=== PATIENT | female | born 1940 | race Caucasian/White ===

== ENCOUNTER 2017-05-30 14:09 | Outpatient (CLI) | payer OTHER ==
[~2017-05-30 14:09] MED LIST: ASPIRIN81 M1; CELEBREX100 MG PO; COREG CR10 MG; DIALYVITE 800-1 EACH; ETODOLAC500 MG; GLIMEPIRIDE4 MG; GLUCOPHAGE XR500 MG; LOSARTAN-HCTZ1 EAC1; OMEPRAZOLE40 MG; REGLAN 10ML5 MG/ML; REGLAN5 MG/5 ML; SYNTHROID112 MCG; ULTRACET; ZOLOFT25 MG; ZOLPIDEM TARTRA10 MG
== END 2017-05-30 14:16 | disposition home or self-care (01) ==
LOC: RAD 501 14:09
DX: R07.81 Pleurodynia (principal); M54.5 Low back pain

== ENCOUNTER 2017-07-04 07:59 | Outpatient (CLI) | payer OTHER | END 2017-07-04 08:09 | disposition home or self-care (01) | LOC: LAB 07:59 | DX: E83.42 Hypomagnesemia (principal) ==

== ENCOUNTER 2017-07-04 10:03 | Outpatient (CLI) | payer OTHER | END 2017-07-04 10:05 | disposition home or self-care (01) | LOC: NUCLEAR 10:03 | DX: M85.9 Disorder of bone density and structure, unspecified (principal); M81.0 Age-related osteoporosis without current pathological fracture ==

== ENCOUNTER 2018-07-24 09:58 | Outpatient (CLI) | payer OTHER | END 2018-07-24 10:06 | disposition home or self-care (01) | LOC: TOM 09:58 | DX: I67.89 Other cerebrovascular disease (principal) ==

== ENCOUNTER 2018-08-25 13:36 | Outpatient (CLI) | payer OTHER | END 2018-08-25 13:38 | disposition home or self-care (01) | LOC: MAMO-SONO 13:36 | DX: Z12.31 Encounter for screening mammogram for malignant neoplasm of breast (principal); Z87.898 Personal history of other specified conditions ==

== ENCOUNTER 2018-09-24 17:06 | Emergency (ER) | payer OTHER ==
[~2018-09-24] VITALS: Ht 160 cm; Wt 111.6 kg
== END 2018-09-25 00:08 | disposition home or self-care (01) ==
LOC: ER 17:06
DX: S00.83XA Contusion of other part of head, initial encounter (principal); W18.39XA Other fall on same level, initial encounter; Y93.89 Activity, other specified; Y92.098 Other place in other non-institutional residence as the place of occurrence of the external cause; Y99.8 Other external cause status

== ENCOUNTER 2019-11-16 14:25 | Outpatient (CLI) | payer OTHER | END 2019-11-16 14:33 | disposition home or self-care (01) | LOC: NUCLEAR 14:25 | PROVIDERS: ATTEND Internal Medicine | DX: M81.8 Other osteoporosis without current pathological fracture (principal); M25.512 Pain in left shoulder; Z96.651 Presence of right artificial knee joint; E11.40 Type 2 diabetes mellitus with diabetic neuropathy, unspecified; E78.49 Other hyperlipidemia; E55.9 Vitamin D deficiency, unspecified; E03.8 Other specified hypothyroidism; E66.8 Other obesity; I87.2 Venous insufficiency (chronic) (peripheral); F33.1 Major depressive disorder, recurrent, moderate; K29.50 Unspecified chronic gastritis without bleeding; M15.0 Primary generalized (osteo)arthritis; I11.9 Hypertensive heart disease without heart failure; G47.00 Insomnia, unspecified ==

== ENCOUNTER 2019-12-27 09:23 | Outpatient (CLI) | payer OTHER | END 2019-12-27 09:28 | disposition home or self-care (01) | LOC: RAD 09:23 | PROVIDERS: ATTEND Orthopaedic Surgery | DX: M25.561 Pain in right knee (principal); Z96.651 Presence of right artificial knee joint; M25.551 Pain in right hip; M25.552 Pain in left hip ==

== ENCOUNTER 2020-11-21 07:19 | Outpatient (CLI) | payer OTHER | END 2020-11-21 07:30 | disposition home or self-care (01) | LOC: TOM 07:19 | PROVIDERS: ATTEND Orthopaedic Surgery | DX: M19.012 Primary osteoarthritis, left shoulder (principal) ==

== ENCOUNTER → 2021-02-06 08:55 | Outpatient (CLI) | payer OTHER | END | disposition home or self-care (01) | LOC: LAB 08:55 | PROVIDERS: ATTEND Orthopaedic Surgery | DX: I10 Essential (primary) hypertension (principal); D64.89 Other specified anemias; E88.89 Other specified metabolic disorders; D68.8 Other specified coagulation defects; N39.0 Urinary tract infection, site not specified; Z22.322 Carrier or suspected carrier of Methicillin resistant Staphylococcus aureus; I49.8 Other specified cardiac arrhythmias; Z76.89 Persons encountering health services in other specified circumstances; M75.122 Complete rotator cuff tear or rupture of left shoulder, not specified as traumatic ==

== ENCOUNTER 2021-02-20 05:38 | Inpatient (IN) | payer OTHER ==
[~2021-02-20 05:38] MED LIST changes: +ARICEPT10 MG PO; +DITROPAN XL10 MG PO; +GLIMEPIRIDE2 MG
== END 2021-02-21 14:44 | disposition home or self-care (01) | DRG 483 ==
LOC: CIR.AMB 05:38 → SURH 15:06 → O/R 15:06 → SURH 15:14
PROVIDERS: ADMIT Orthopaedic Surgery; ATTEND Orthopaedic Surgery
PROC: 0PBB0ZZ Excision of Left Clavicle, Open Approach (ICD-10-PCS; 2021-02-20)
PROC: 0LS40ZZ Reposition Left Upper Arm Tendon, Open Approach (ICD-10-PCS; 2021-02-20)
PROC: 3E0F7SF Introduction of Other Gas into Respiratory Tract, Via Natural or Artificial Opening (ICD-10-PCS; 2021-02-20)
PROC: 0RRK00Z Replacement of Left Shoulder Joint with Reverse Ball and Socket Synthetic Substitute, Open Approach (ICD-10-PCS; principal; 2021-02-20 07:00)
DX: M75.122 Complete rotator cuff tear or rupture of left shoulder, not specified as traumatic (principal); M19.212 Secondary osteoarthritis, left shoulder

== ENCOUNTER 2021-06-12 14:53 | Outpatient (CLI) | payer OTHER ==
[~2021-06-12 14:53] MED LIST changes: +SYNTHROID112 MCG PO
[2021-06-15] MEDS ORDERED: PEPCID AC20 MG PO (08:58)
[2021-06-15] MEDS ORDERED: PROTONIX40 MG PO (08:58)
== END 2021-06-12 14:59 | disposition home or self-care (01) ==
LOC: RAD 14:53
PROVIDERS: ATTEND Orthopaedic Surgery
DX: M25.512 Pain in left shoulder (principal)

== ENCOUNTER 2021-06-13 12:26 | Outpatient (CLI) | payer OTHER ==
[2021-06-15] MEDS ORDERED: PROTONIX40 MG PO (08:58)
[2021-06-15] MEDS ORDERED: PEPCID AC20 MG PO (08:58)
== END 2021-06-13 12:30 | disposition home or self-care (01) ==
LOC: NUCLEAR 12:26
PROVIDERS: ATTEND Neuromusculoskeletal Medicine & OMM
DX: G30.9 Alzheimer's disease, unspecified (principal); G31.09 Other frontotemporal neurocognitive disorder
CPT/HCPCS: 78803; A9557

== ENCOUNTER 2021-06-19 09:29 | Day surgery (SDC) | payer OTHER ==
[~2021-06-19 09:29] MED LIST changes: +PEPCID AC20 MG PO; +PROTONIX40 MG PO
== END 2021-06-19 17:15 | disposition home or self-care (01) ==
LOC: CIR.AMB 09:29
PROVIDERS: ATTEND Orthopaedic Surgery
DX: S43.085A Other dislocation of left shoulder joint, initial encounter (principal); Z88.2 Allergy status to sulfonamides; Z91.048 Other nonmedicinal substance allergy status; Z88.0 Allergy status to penicillin; I10 Essential (primary) hypertension; Z86.16 Personal history of COVID-19; Z86.73 Personal history of transient ischemic attack (TIA), and cerebral infarction without residual deficits; M19.90 Unspecified osteoarthritis, unspecified site; E66.9 Obesity, unspecified; Z20.822 Contact with and (suspected) exposure to COVID-19

== ENCOUNTER 2021-06-27 12:18 | Outpatient (CLI) | payer OTHER | END 2021-06-27 12:22 | disposition home or self-care (01) | LOC: RAD 12:18 | PROVIDERS: ATTEND Orthopaedic Surgery | DX: M25.512 Pain in left shoulder (principal) ==

== ENCOUNTER 2021-07-02 05:56 | Day surgery (SDC) | payer OTHER ==
[2021-07-02] MEDS ORDERED: LEVOFLOXACIN750 MG PO (10:29)
== END 2021-07-02 12:45 | disposition home or self-care (01) ==
LOC: CIR.AMB 05:56
PROVIDERS: ATTEND Orthopaedic Surgery
DX: T84.028A Dislocation of other internal joint prosthesis, initial encounter (principal); Z88.0 Allergy status to penicillin; Z88.2 Allergy status to sulfonamides; Z88.8 Allergy status to other drugs, medicaments and biological substances; I10 Essential (primary) hypertension; E03.9 Hypothyroidism, unspecified; E11.42 Type 2 diabetes mellitus with diabetic polyneuropathy; E66.01 Morbid (severe) obesity due to excess calories; I87.2 Venous insufficiency (chronic) (peripheral); Z79.02 Long term (current) use of antithrombotics/antiplatelets; Z79.84 Long term (current) use of oral hypoglycemic drugs; E11.9 Type 2 diabetes mellitus without complications

== ENCOUNTER 2021-08-16 10:16 | Outpatient (CLI) | payer OTHER ==
[~2021-08-16 10:16] MED LIST changes: +LEVOFLOXACIN750 MG PO
== END 2021-08-16 10:24 | disposition home or self-care (01) ==
LOC: RAD 10:16 → EDBD 10:16 → RAD 10:24
PROVIDERS: ATTEND Orthopaedic Surgery
DX: M25.512 Pain in left shoulder (principal)

== ENCOUNTER 2021-08-17 08:25 | Emergency (ER) | payer OTHER ==
[~2021-08-17] VITALS: Ht 152.4 cm; Wt 98.4 kg
== END 2021-08-17 16:27 | disposition home or self-care (01) ==
LOC: ER 08:25
DX: T84.028A Dislocation of other internal joint prosthesis, initial encounter (principal); X58.XXXA Exposure to other specified factors, initial encounter; Z88.0 Allergy status to penicillin; Z88.2 Allergy status to sulfonamides

== ENCOUNTER 2021-08-24 08:21 | Inpatient (IN) | payer OTHER ==
[~2021-08-24] VITALS: Ht 30.5 cm; Wt 99.8 kg
== END 2021-08-25 23:56 | disposition home or self-care (01) | DRG 517 ==
LOC: CIR.AMB 08:21 → SURG 17:54 → SURH 17:54
PROVIDERS: ADMIT Orthopaedic Surgery; ATTEND Orthopaedic Surgery
PROC: 0RWK0JZ Revision of Synthetic Substitute in Left Shoulder Joint, Open Approach (ICD-10-PCS; principal; 2021-08-24 13:30)
DX: T84.028A Dislocation of other internal joint prosthesis, initial encounter (principal); Z20.822 Contact with and (suspected) exposure to COVID-19

== ENCOUNTER 2021-08-27 16:43 | Inpatient (IN) | payer OTHER ==
[~2021-08-27] VITALS: Ht 172.7 cm; Wt 108.9 kg
--- NOTE | 2021-08-27 17:16 | NUR ---
PACIENTE ALERTA Y ORIENTDA ACOMPANADA DE FAMILIAR LA CUAL REFIERE QUE LA PACIENTE SE LACERO LA HERIDA DE LA SCIRUGIA DE REMPLAZO DE HOMBRO, SE OBSERVA AREA SIPURANDO, POR MEDIO DE FOTP SE PUDO OBSERVAR AREA ABIERTA Y PROFUNDA, PACIENTE REFIERE QUE LE DUELE EL AREA. SE MONITOREAN S/V Y SE UBICA EN OBSERVACION, FAMILIAR REFIERE QUE PACIENTE FUE REFERIDA POR RASHAWN PARA ADMITIR PACIETE PARA CHANDLER DE OPERACIONES.
== END 2021-09-04 14:20 | disposition home or self-care (01) | DRG 908 ==
LOC: ER 16:43 → SURH 18:12 → SEC-K 18:12 → SURH 08-28 11:06
PROVIDERS: ADMIT Orthopaedic Surgery; ATTEND Orthopaedic Surgery
PROC: 0JDF0ZZ Extraction of Left Upper Arm Subcutaneous Tissue and Fascia, Open Approach (ICD-10-PCS; 2021-08-27)
PROC: 0JQF0ZZ Repair Left Upper Arm Subcutaneous Tissue and Fascia, Open Approach (ICD-10-PCS; principal; 2021-08-27 19:00)
PROC: 4A12X4Z Monitoring of Cardiac Electrical Activity, External Approach (ICD-10-PCS; 2021-08-28)
DX: T81.31XA Disruption of external operation (surgical) wound, not elsewhere classified, initial encounter (principal); T81.41XA Infection following a procedure, superficial incisional surgical site, initial encounter; T84.59XA Infection and inflammatory reaction due to other internal joint prosthesis, initial encounter; Z68.41 Body mass index [BMI] 40.0-44.9, adult; L08.9 Local infection of the skin and subcutaneous tissue, unspecified; D53.8 Other specified nutritional anemias; E88.09 Other disorders of plasma-protein metabolism, not elsewhere classified; M19.212 Secondary osteoarthritis, left shoulder; I10 Essential (primary) hypertension; E11.9 Type 2 diabetes mellitus without complications; E03.8 Other specified hypothyroidism; G30.9 Alzheimer's disease, unspecified; F02.80 Dementia in other diseases classified elsewhere, unspecified severity, without behavioral disturbance, psychotic disturbance, mood disturbance, and anxiety; Z79.84 Long term (current) use of oral hypoglycemic drugs; Z88.0 Allergy status to penicillin; Z91.09 Other allergy status, other than to drugs and biological substances; Z96.612 Presence of left artificial shoulder joint

== ENCOUNTER → 2021-09-29 | Emergency (ER) | payer OTHER ==
[~2021-09-29] VITALS: Ht 172.7 cm; Wt 99.8 kg
== END | disposition left against medical advice (07) ==
LOC: ER 17:19
DX: R10.84 Generalized abdominal pain (principal); R11.2 Nausea with vomiting, unspecified; K57.30 Diverticulosis of large intestine without perforation or abscess without bleeding; E11.9 Type 2 diabetes mellitus without complications; Z79.84 Long term (current) use of oral hypoglycemic drugs; I10 Essential (primary) hypertension; Z88.0 Allergy status to penicillin; Z88.2 Allergy status to sulfonamides